=== PATIENT | female | born 1930 | race Caucasian/White ===

== ENCOUNTER → 2016-12-13 | Outpatient (CLI) | payer OTHER ==
--- NOTE | 2016-12-13 15:54 | CT ---
STUDY: CT HEAD WITHOUT CONTRAST HISTORY: Dizziness. Unsteady gait. COMPARISON: None. TECHNIQUE: Multiple axial images of the head were obtained from the skull base to the vertex without administration of IV contrast. Automated exposure control (AEC) was utilized to adjust the MA and/o r kV. Findings: The sulci, cisterns and ventricles are prominent consistent with diffuse volume loss. There are confluent and scattered foci of low attenuation in the periventricular and subcortical whi te matter of both hemispheres. This is a nonspecific finding which likely represents microangiopathi c change in a patient of this age. 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 There is no evidence of acute territorial infarction, hemorrhage, mass, mass effect or midline shift. There are no abnormal extra- axial fluid collections. There is no evidence of acute osseous abnormality or significant soft tissue swelling. IMPRESSION: 1. No evidence of acute intracranial abnormality. 2. Nonspecific white matter change and volume loss as described. 3. 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 4. If there remains strong clinical concern for acute intracranial abnormality, then an MRI examinat ion should be considered for further evaluation. Reported By:
== END ==
LOC: RAD 14:21
PROVIDERS: ATTEND Nurse Practitioner Family
DX: R42 Dizziness and giddiness (principal); R26.81 Unsteadiness on feet; F03.90 Unspecified dementia, unspecified severity, without behavioral disturbance, psychotic disturbance, mood disturbance, and anxiety
CPT/HCPCS: 70450

== ENCOUNTER 2017-02-03 20:21 | Emergency (ER) | payer OTHER ==
[2017-02-03 20:43] VITALS: BP 146/83; BMI 28.5
[2017-02-03] MEDS ORDERED: MORPHINE SULFATE INJ 4 MG IM ONE (22:21)
[2017-02-03] MEDS ORDERED: ZOFRAN INJ 4 MG VIAL IM ONE (22:21)
--- NOTE | 2017-02-03 22:24 | DR.GENAD ---
HPI - PCP Primary Care Physician: - HPI Comment HPI Comment: SYMTOMS INTERMITTENT BUT GETTING WORSE. NO FEVER. - Complaint/Symptoms Chief Complaint Doctors Comments: CHEST PAIN WITH DIAPHORESIS WITH ABDOMINAL PAIN WITH NAUSEA AND VOMITING. Chief Complaint:: Pt states; "I'm breaking out in sweats and get shortness of breath. Whenever this happens my stomach bothers me and it sebastian all over". - Nurses notes reviewed Nurses Notes Review: Yes - Source History Provided: Patient, Family Member - Mode of Arrival Mode of Arrival: Ambulatory - Timing Onset of Chief Complaint: 01/19/17 Came on: Suddenly - Duration Duration: Constant Duration: Days - Severity Severity: Moderate PMH - PMH Past Medical History: Yes Past Medical History: Angina, Diabetes Past Surgical History: Yes Surgical History: Abdominal Surgery Past Surgical History Comment: REMOVED AN OVARY - Family History History of Family Medical Conditions: Yes Family Medical History: Diabetes Mellitus, Hypertension Family Medical History Comment: BROTHER OF A STROKE - Social History Does patient currently use any type of tobacco product: No Have you used tobacco products in the last 12 months: No Type of Tobacco Use: None Does any household member use tobacco: No Alcohol Use: None Do you use any recreational Drugs:: No Lives With: Family Lives Where: Home - infectious screening In the last 2 months have you had wt loss of >10#?: NO Have you had fever, night sweats or hemotysis?: No Have you traveled outside the country in the last 6 months?: No Isolation: Standard ROS - Review of Systems Constitutional: Weakness, Fatigue, Loss of Appetite. negative: Chills, Fever Eyes: No Symptoms Reported. negative: Eye Pain, Discharge ENTM: No Symptoms Reported. negative: Ear Pain, Nose Discharge, Nose Congestion , Throat Pain Respiratoy: Non-Productive Cough, Short of Breath, Wheezing. negative: Productive Cough, Hemoptysis Cardiovascular: negative: Chest Pain Gastrointestinal/Abdominal: Abdominal Pain, Nausea Genitourinary: negative: Hematuria Neurological: Headache, Weakness, Dizziness Musculoskeletal: Muscle Pain Integumentary: Change in Color Hematologic/Lymphatic: Easy Bruising Endocrine: No Symptoms Reported All Other Systems: Reviewed and Negative PE - Vital Signs Vitals: Temperature 97.4 F Pulse Rate 110 Respiratory Rate 20 Blood Pressure 146/83 O2 Sat by Pulse Oximetry 96 - General Limitations: No Limitations General Appearance: Alert - Head Head Exam: Normal Inspection - Eyes Eye exam: Normal Appearance - ENT ENT Exam: Normal External Ear Exam External Ear Exam: Normal External Inspection TM/Canal Exam: Bilateral Normal Nose Exam: Normal Nose Exam Mouth Exam: Normal Inspection Throat Exam: Normal Inspection - Neck Neck Exam: Trachea Midline - Chest Chest Inspection: Symmetric Chest Wall Rise - Respiratory Respiratory Exam: Respiratory Distress Respiratory Exam: Bilateral Wheezing, Bilateral Rhonchi, Lower Wheezing, Lower Rhonchi - Cardiovascular Cardiovascular Exam: Regular Rate, Normal Rhythm, Normal Heart Sounds - Abdominal Exam Abdominal Exam: Normal Bowel Sounds, Soft, Tenderness - Extremities Extremities Exam: Normal Inspection - Back Back Exam: Paraspinal Tenderness - Neurologic Neurological Exam: Alert - Psychiatric Psychiatric Exam: Anxious - Skin Skin Exam: Normal Color MDM - Additional Information Additional Information Obtained From: Family - Differential Diagnosis Differential Diagnosis: ABDOMINAL PAIN, BOWEL OBSTRUCTION, DIVERTICULITIS, UTI Course - Treatment Treatment: SEE ORDERS - Education/Counseling Education/Counseling: Patient, Family, Education Educated On: Treatment, Diagnosis, Needs for Follow Up ROR - Labs Reviewed Laboratory Results Reviewed?: Yes Result Diagrams: 02/03/17 22:46 02/03/17 22:46 Laboratory: 02/03/17 23:57 Urine,Clean Catch Urine Culture - Final Escherichia Coli WBC 9.7 X10^3/uL (3.6-10.0) 02/03/17 22:46 RBC 4.84 X10^6/uL (3.5-5.4) 02/03/17 22:46 Hgb 14.1 g/dL (12.0-16.0) 02/03/17 22:46 Hct 42.0 % (36.0-47.0) 02/03/17 22:46 MCV 86.7 fL (80.0-100.0) 02/03/17 22:46 MCH 29.1 pg (27.0-34.0) 02/03/17 22:46 MCHC 33.6 g/dL (33.0-35.0) 02/03/17 22:46 RDW 14.4 % (11.6-16.5) 02/03/17 22:46 Plt Count 194 X10^3/uL (150.0-450.0) 02/03/17 22:46 Plt Count Comment Adequate (ADEQUATE) 02/03/17 22:46 MPV 9.1 fL (7.4-11.0) 02/03/17 22:46 Neut % 56.7 % (42.0-75.0) 02/03/17 22:46 Lymph % 33.6 % (21.0-51.0) 02/03/17 22:46 Parker % 6.7 % (0.0-13.0) 02/03/17 22:46 Eos % 1.9 % (0.9-2.9) 02/03/17 22:46 Baso % 1.1 % (0.2-1.0) H 02/03/17 22:46 Neut # 5.5 x10^3/uL (2.2-4.8) H 02/03/17 22:46 Lymph # 3.3 X10^3/uL (1.3-2.9) H 02/03/17 22:46 Parker # 0.7 x10^3/uL (0.3-0.8) 02/03/17 22:46 Eos # 0.2 x10^3/uL (0.0-0.2) 02/03/17 22:46 Baso # 0.1 X10^3/uL (0.0-0.1) 02/03/17 22:46 Absolute Nucleated RBC 0.2 /100WBC 02/03/17 22:46 Plt Clumps, EDTA Rare 02/03/17 22:46 Plt Morphology Comment Normal (NORMAL) 02/03/17 22:46 RBC Morphology Normal (NORMAL) 02/03/17 22:46 Sodium 143 mmol/L (136-145) 02/03/17 22:46 Corrected Sodium 143 mmol/L (136-145) 02/03/17 22:46 Potassium 3.8 mmol/L (3.5-5.1) 02/03/17 22:46 Chloride 107 mmol/L (98-107) 02/03/17 22:46 Carbon Dioxide 26.8 mmol/L (21-32) 02/03/17 22:46 BUN 15 mg/dL (7-18) 02/03/17 22:46 Creatinine 1.17 mg/dL (0.55-1.02) H 02/03/17 22:46 Est GFR (MDRD) Af Amer 57 (>60) L 02/03/17 22:46 Est GFR (MDRD) Non-Af 47 (>60) L 02/03/17 22:46 Glucose 114 mg/dL (65-99) H 02/03/17 22:46 Calcium 9.6 mg/dL (8.5-10.1) 02/03/17 22:46 Corrected Calcium TNP 02/03/17 22:46 Total Bilirubin 0.50 mg/dL (0.2-1.0) 02/03/17 22:46 AST 17 Units/L (15-37) 02/03/17 22:46 ALT 20 Units/L (12-78) 02/03/17 22:46 Alkaline Phosphatase 81 Units/L (46-116) 02/03/17 22:46 Creatine Kinase 40 Units/L (26-192) 02/03/17 22:46 CK-MB (CK-2) < 1.0 ng/mL (0-4.0) 02/03/17 22:46 CK/CKMB % Calc 2.5 % (<4) 02/03/17 22:46 Troponin I < 0.02 ng/mL (0-1.5) 02/03/17 22:46 B-Natriuretic Peptide 769 pg/mL (0-79) H* 02/03/17 22:46 Total Protein 8.0 g/dL (6.4-8.2) 02/03/17 22:46 Albumin 3.9 g/dL (3.4-5.0) 02/03/17 22:46 Globulin 4.1 g/dL (2.5-4.5) 02/03/17 22:46 Albumin/Globulin Ratio 1.0 Ratio (1.1-2.1) L 02/03/17 22:46 Specimen Type Clean catch urine 02/03/17 23:57 Urine Color Yellow (YELLOW) 02/03/17 23:57 Urine Appearance Hazy (CLEAR) 02/03/17 23:57 Urine pH 5.0 (5.0 - 8.0) 02/03/17 23:57 Ur Specific [place] 1.015 (1.000-1.030) 02/03/17 23:57 Urine Protein 2+ (NEGATIVE) 02/03/17 23:57 Urine Glucose (UA) Negative (NEGATIVE) 02/03/17 23:57 Urine Ketones Negative (NEGATIVE) 02/03/17 23:57 Urine Occult Blood 1+ (NEGATIVE) 02/03/17 23:57 Urine Nitrite Negative (NEGATIVE) 02/03/17 23:57 Urine Bilirubin 1+ (NEGATIVE) 02/03/17 23:57 Urine Urobilinogen Normal (NORMAL) 02/03/17 23:57 Ur Leukocyte Esterase 3+ (NEGATIVE) 02/03/17 23:57 Urine RBC 2-6 /HPF (NEGATIVE) 02/03/17 23:57 Urine WBC 40-50 /HPF (NEGATIVE) 02/03/17 23:57 Ur Squamous Epith Cells Few /HPF (NEGATIVE) 02/03/17 23:57 Urine Bacteria 1+ /HPF (NEGATIVE) 02/03/17 23:57 Urine Mucus Few /HPF (NEGATIVE) 02/03/17 23:57 Ur Culture Indicated? Yes/culture set up 02/03/17 23:57 - XRAY XRAY Interpreted by: Radiologist XRAY Findings: REPORT DISCUSS WITH PATIENT. - EKG Rhythm: ST (EKG NOTED) - Diagnosis Discharge Problem: Abdominal pain Qualifiers: Abdominal location: generalized Qualified Code(s): R10.84 - Generalized abdominal pain UTI (urinary tract infection) Qualifiers: Urinary tract infection type: site unspecified Hematuria presence: without hematuria Qualified Code(s): N39.0 - Urinary tract infection, site not specified - Discharge Plan Disposition: 01 HOME, SELF-CARE Condition: Stable Prescriptions: Ondansetron HCl [Zofran Tab 4 mg] 4 mg PO Q8H PRN #12 tab PRN Reason: Nausea/Vomiting Sulfamethoxazole-Trimethoprim [BACTRIM DS TAB 800/160 MG *] 1 tab PO BID #20 tab - Follow ups/Referrals Follow ups/Referrals: Ananda Noriega [Primary Care Provider] - 3 days - Instructions Instructions: Abdominal Pain, Adult, [id number], Urinary Tract Infection, [id number] Additional Instructions: RETURN TO ED IF WORSE.
[2017-02-03] MEDS ORDERED: TORADOL 60 MG VIAL IVP ONE (22:50)
[2017-02-03] MEDS ORDERED: TORADOL 60 MG VIAL ONE (22:53)
[2017-02-03] MEDS ORDERED: ZOFRAN INJ 4 MG VIAL ONE (22:53)
[2017-02-03 23:11] LABS: BLOOD UREA NITROGEN 15 mg/dL (7-18); CALCIUM 9.6 mg/dL (8.5-10.1); CARBON DIOXIDE 26.8 mmol/L (21-32); CHLORIDE 107 mmol/L (98-107); COR NA(FOR HYPERGLY) 143 mmol/L (136-145); CREATININE 1.17 mg/dL (0.55-1.02); GLUCOSE 114 mg/dL (65-99); SODIUM 143 mmol/L (136-145); TROPONIN I < 0.02 ng/mL (0-1.5); eGFR BLACK RACES 57 (>60); eGFR NON BLACK RACES 47 (>60)
[2017-02-03 23:17] LABS: ALANINE AMINOTRANSFERASE 20 Units/L (12-78); ALBUMIN 3.9 g/dL (3.4-5.0); ALKALINE PHOSPHATASE 81 Units/L (46-116); ASPARTATE AMINO TRANSFERASE 17 Units/L (15-37); BASOPHILS # (AUTO) 0.1 X10^3/uL (0.0-0.1); BASOPHILS % (AUTO) 1.1 % (0.2-1.0); CKMB % 2.5 % (<4); CREATINE KINASE 40 Units/L (26-192); CREATINE KINASE MB < 1.0 ng/mL (0-4.0); EOSINOPHILS # (AUTO) 0.2 x10^3/uL (0.0-0.2); EOSINOPHILS % (AUTO) 1.9 % (0.9-2.9); HEMOGLOBIN 14.1 g/dL (12.0-16.0); LYMPHOCYTES # (AUTO) 3.3 X10^3/uL (1.3-2.9); LYMPHOCYTES % (AUTO) 33.6 % (21.0-51.0); MEAN CORPUSCULAR HEMOGLOBIN 29.1 pg (27.0-34.0); MEAN CORPUSCULAR HGB CONC 33.6 g/dL (33.0-35.0); MEAN CORPUSCULAR VOLUME 86.7 fL (80.0-100.0); MEAN PLATELET VOLUME 9.1 fL (7.4-11.0); MONOCYTES # (AUTO) 0.7 x10^3/uL (0.3-0.8); MONOCYTES % (AUTO) 6.7 % (0.0-13.0); NEUTROPHILS # (AUTO) 5.5 x10^3/uL (2.2-4.8); NEUTROPHILS % (AUTO) 56.7 % (42.0-75.0); PLATELET COUNT 194 X10^3/uL (150.0-450.0); RED BLOOD COUNT 4.84 X10^6/uL (3.5-5.4); RED CELL DISTRIBUTION WIDTH 14.4 % (11.6-16.5)
[2017-02-03 23:20] LABS: WHITE BLOOD COUNT 9.7 X10^3/uL (3.6-10.0)
[2017-02-03 23:21] LABS: PLATELET MORPHOLOGY COMMENT NORMAL (NORMAL)
--- NOTE | 2017-02-03 23:32 | RAD ---
Chest AP portable Indication: Chest pain. Comparison: None available. Findings: There is no pneumothorax. Heart size is prominent. Right hemidiaphragm is elevated. Mild i ncreased interstitial markings noted with cardiomegaly and effusions. Impression: Findings 5 cardiomegaly, mild edema and effusions suggest CHF. Reported By:
--- NOTE | 2017-02-03 23:40 | CT ---
CT abdomen and pelvis without contrast Indication: Abdominal pain Technique: Helical images through the abdomen and pelvis without contrast. Coronal and sagittal refo rmats provided. Findings: Review of bone windows shows spine degenerative change and pelvis degenerative change with out destructive osseous lesion. Limited images through lower chest shows scarring and interstitial e katie with effusions is Wells cardiomegaly all compatible with CHF. Patchy opacity in the right mid l maggie and lingula could represent developing pneumonia. Abdomen: The liver, spleen, adrenal glands, pancreas, stomach and small bowel show no acute abnormal ity. The proximal colon is normal. The appendix is not seen, probably absent. Vascular plaque noted. Mild renal atrophy noted without hydroureteronephrosis. There is focal wall thickening of the sigmoid colon on coronal image 14 and axial image 59. Lesion n eeds to be excluded. Pelvis: The urinary bladder and rectum are otherwise normal. Uterus is absent. Adnexal regions show no abnormality. Impression: 1. Cardiomegaly, effusions and edema suggesting CHF. Developing pneumonia not excluded. 2. Wall thickening of the sigmoid colon focally is nonspecific. Colitis is possible. Underlying neop lasia needs to be excluded. Followup with nonemergent colonoscopy. 3. Vascular plaque, renal atrophy, spine degenerative change in other findings as above. Reported By:
[2017-02-03 23:42] LABS: B-TYPE NATRIURETIC PEPTIDE 769 pg/mL (0-79)
[2017-02-04 00:07] LABS: BILIRUBIN,URINE 1+ (NEGATIVE); BLOOD/HEMOGLOBIN,URINE 1+ (NEGATIVE); GLUCOSE, URINE NEGATIVE (NEGATIVE); KETONES,URINE NEGATIVE (NEGATIVE); LEUKOCYTE ESTERASE ,URINE 3+ (NEGATIVE); NITRITES,URINE NEGATIVE (NEGATIVE); PROTEIN,URINE 2+ (NEGATIVE); UROBILINOGEN,URINE NORMAL (NORMAL)
[2017-02-04 00:19] LABS: APPEARANCE,URINE HAZY (CLEAR); COLOR,URINE YELLOW (YELLOW)
[2017-02-04 00:20] LABS: BACTERIA,URINE 1+ /HPF (NEGATIVE); MUCUS,URINE FEW /HPF (NEGATIVE); SQUAMOUS EPITHELIAL CELL,UR FEW /HPF (NEGATIVE)
[2017-02-04] MEDS ORDERED: BACTRIM DS TAB PO ONE ×2 (00:42→00:47)
== END 2017-02-04 00:52 | disposition home or self-care (01) ==
LOC: ER 20:21
DX: N39.0 Urinary tract infection, site not specified (principal); R10.84 Generalized abdominal pain; B96.29 Other Escherichia coli [E. coli] as the cause of diseases classified elsewhere; I51.7 Cardiomegaly
CPT/HCPCS: 36415; 71010; 74176; 80053; 81001; 82550; 82553; 83880; 84484; 85025; 87086; 87088; 87186; 93005; 93010; 96372; 99283; J1885; J2405